=== PATIENT | male | born 1960 | race Caucasian/White ===

== ENCOUNTER 2017-11-27 07:20 | Emergency (ER) | payer SELFPAY ==
[~2017-11-27] VITALS: Ht 180.3 cm; Wt 110.2 kg
[~2017-11-27 07:20] MED LIST: LANTUS100 UNITS/ SC; LISINOPRIL10 MG PO; METFORMIN HCL500 M2; METFORMIN HCL500 MG PO; MOTRIN800 MG; PRINIVIL20 MG; ZOCOR40 MG
== END 2017-11-27 08:13 | disposition home or self-care (01) ==
LOC: ER 07:20
DX: R20.2 Paresthesia of skin (principal); E11.40 Type 2 diabetes mellitus with diabetic neuropathy, unspecified; L03.114 Cellulitis of left upper limb; L03.113 Cellulitis of right upper limb; I10 Essential (primary) hypertension
CPT/HCPCS: 99283

== ENCOUNTER → 2019-05-11 | Emergency (ER) | payer SELFPAY ==
[~2019-05-11] VITALS: Ht 180.3 cm; Wt 110.2 kg
[~2019-05-11] MED LIST changes: +CITRATE OF MAGNESIA 300ML BOTTLE PO ONE; +DIATRIZOATE MEGL/DIATRIZOA SOD 30 ML BTL PO ONE; +LACTULOSE SYRUP 20 GM/30 ML UDC PO ONE; +PEG (High)/E-LYTE SOLN 4,000 ML BTL PO ONE
--- OUTSIDE RECORDS SUMMARY | 2019-05-11 00:36 | XMS REPORT ---
Author [facility] Address Unknown Phone Unavailable Care Team Providers Care Exercise Equipment Specialist Name Role Phone Unavailable Unavailable Payers Payer Name Policy Type Policy Number Effective Date Expiration Date Problems This patient has no known problems. Allergies, Adverse Reactions, Alerts Allergy Name Allergy Type Status Severity Reaction(s) Onset Date Inactive Date Treating Clinician Comments azithromycin DA Active [place] 2014-06-05 00:00:00 Medications This patient has no known medications. Results Test Description Test Time Test Comments Text Results Atomic Results Result Comments URINALYSIS COMPLETE 2019-05-08 07:34:00 UA COLOR (test code=COLU) YELLOW YELLOW UA APPEARANCE (test code=APPU) CLEAR CLEAR UA GLUCOSE DIPSTICK (test code=DGLUU) NEGATIVE mg/dL NEGATIVE UA BILIRUBIN DIPSTICK (test code=BILU) NEGATIVE mg/dL NEGATIVE UA KETONE DIPSTICK (test code=KETU) NEGATIVE mg/dL NEGATIVE UA SPECIFIC GRAVITY (test code=SGU) 1.029 1.001-1.035 UA BLOOD DIPSTICK (test code=PIETER) Negative mg/dL NEGATIVE UA PH DIPSTICK (test code=BUNNY) 6.0 5.0-8.0 UA PROTEIN DIPSTICK (test code=PROU) 20 (Trace) mg/dL NEGATIVE UA UROBILINIOGEN DIPSTICK (test code=URO) >12.0 (4+) mg/dL NEGATIVE UA NITRITE DIPSTICK (test code=SANCHEZ) NEGATIVE NEGATIVE UA LEUKOCYTE ESTERASE W REFLEX (test code=LEUUR) NEGATIVE Doris/uL NEGATIVE UA WBC (test code=WBCU) 0-5 per HPF 0-5 UA RBC (test code=RBCU) 0-2 #/HPF 0-5 UA EPITHELIAL CELLS (test code=EPIU) FEW per HPF FEW UA BACTERIA (test code=BACU) NONE SEEN #/HPF NONE UA HYALINE CAST (test code=HYALU) 0-2 #/LPF 0-5 UA MUCUS (test code=MUCU) MANY #/LPF FEW Urine Source? Clean CatchURINALYSIS [id number] 07:15:00* Test Item Value Reference Range Comments UA COLOR (test code=COLU) YELLOW YELLOW UA APPEARANCE (test code=APPU) CLEAR CLEAR UA GLUCOSE DIPSTICK (test code=DGLUU) NEGATIVE mg/dL NEGATIVE UA BILIRUBIN DIPSTICK (test code=BILU) NEGATIVE mg/dL NEGATIVE UA KETONE DIPSTICK (test code=KETU) NEGATIVE mg/dL NEGATIVE UA SPECIFIC GRAVITY (test code=SGU) 1.029 1.001-1.035 UA BLOOD DIPSTICK (test code=PIETER) Negative mg/dL NEGATIVE UA PH DIPSTICK (test code=BUNNY) 6.0 5.0-8.0 UA PROTEIN DIPSTICK (test code=PROU) 20 (Trace) mg/dL NEGATIVE UA UROBILINIOGEN DIPSTICK (test code=URO) >12.0 (4+) mg/dL NEGATIVE UA NITRITE DIPSTICK (test code=SANCHEZ) NEGATIVE NEGATIVE UA LEUKOCYTE ESTERASE W REFLEX (test code=LEUUR) NEGATIVE Doris/uL NEGATIVE UA WBC (test code=WBCU) per HPF 0-5 UA RBC (test code=RBCU) per HPF 0-5 UA EPITHELIAL CELLS (test code=EPIU) per HPF Few UA BACTERIA (test code=BACU) per HPF NONE Urine Source? Clean CatchBASIC METABOLIC [id number] 06:32:00* Test Item Value Reference Range Comments SODIUM (test code=NA) 141 mmol/L 136-145 POTASSIUM (test code=K) 4.2 mmol/L 3.5-5.1 CHLORIDE (test code=CL) 107.0 mmol/L 98-107 CARBON DIOXIDE (test code=CO2) 27.0 mmol/L 21-32 ANION GAP (test code=GAP) 11.2 10-20 GLUCOSE (test code=GLU) 178 mg/dL 74-106 BLOOD UREA NITROGEN (test code=BUN) 12 mg/dL 7-18 GLOMERULAR FILTRATION RATE (test code=GFR) > 60 mL/min >=60 Estimated GFR by using Modified MDRD formula.Chronic kidney disease is defined as either kidney damageor GFR <60 mL/min/1.73 m2 for >3 months. CREATININE (test code=CREAT) 0.80 mg/dL 0.7-1.3 BUN/CREATININE RATIO (test code=BUN/CREA) 14.6 10-20 CALCIUM (test code=CA) 9.3 mg/dL 8.5-10.1 HEPATIC FUNCTION [id number] 06:32:00* Test Item Value Reference Range Comments TOTAL PROTEIN (test code=PROT) 6.8 gram/dL 6.4-8.2 ALBUMIN (test code=ALB) 4.3 g/dL 3.4-5.0 GLOBULIN (test code=GLOB) 2.5 gram/dL 2.7-4.2 ALBUMIN/GLOBULIN RATIO (test code=A/G) 1.7 0.75-1.50 BILIRUBIN TOTAL (test code=BILT) 1.00 mg/dL 0.0-1.0 BILIRUBIN DIRECT (test code=BILD) 0.28 mg/dL 0.0-0.20 SGOT/AST (test code=AST) 10 IUnit/L 15-37 SGPT/ALT (test code=ALT) 15 IUnit/L 12-78 ALKALINE PHOSPHATASE TOTAL (test code=ALKP) 71 IUnit/L 45-117 Note change in reference range due to change in reagent. CBC W/O [id number] 06:26:00* Test Item Value Reference Range Comments WHITE BLOOD CELL (test code=WBC) 4.3 K/mm3 4.5-12.5 RED BLOOD CELL (test code=RBC) 2.42 mill/mm3 4.0-5.8 HEMOGLOBIN (test code=HGB) 10.6 gram/dL 13.0-17.5 HEMATOCRIT (test code=HCT) 29.8 % 42.0-52.0 MEAN CELL VOLUME (test code=MCV) 123.1 fL 80-98 MEAN CELL HGB (test code=MCH) 43.8 picogram 27.0-33.0 MEAN CELL HGB CONCETRATION (test code=MCHC) 35.6 gram/dL 33.0-36.0 RED CELL DISTRIBUTION WIDTH (test code=RDW) 11.9 % 11.6-16.2 PLATELET COUNT (test code=PLT) 235 K/mm3 150-450 MEAN PLATELET VOLUME (test code=MPV) 10.2 fL 6.7-11.0 [id number] 06:26:00* Test Item Value Reference Range Comments LIPASE (test code=LIP) 56 U/L 73.0-393.0 BASIC METABOLIC [id number] 06:22:00* Test Item Value Reference Range Comments SODIUM (test code=NA) 141 mmol/L 136-145 POTASSIUM (test code=K) 4.2 mmol/L 3.5-5.1 CHLORIDE (test code=CL) 107.0 mmol/L 98-107 CARBON DIOXIDE (test code=CO2) mmol/L 21-32 ANION GAP (test code=GAP) 10-20 GLUCOSE (test code=GLU) mg/dL 74-106 BLOOD UREA NITROGEN (test code=BUN) mg/dL 7-18 GLOMERULAR FILTRATION RATE (test code=GFR) mL/min >=60 CREATININE (test code=CREAT) mg/dL 0.7-1.3 BUN/CREATININE RATIO (test code=BUN/CREA) 10-20 CALCIUM (test code=CA) mg/dL 8.5-10.1 HEPATIC FUNCTION [id number] 06:22:00* Test Item Value Reference Range Comments TOTAL PROTEIN (test code=PROT) gram/dL 6.4-8.2 ALBUMIN (test code=ALB) g/dL 3.4-5.0 GLOBULIN (test code=GLOB) gram/dL 2.7-4.2 ALBUMIN/GLOBULIN RATIO (test code=A/G) 0.75-1.50 BILIRUBIN TOTAL (test code=BILT) mg/dL 0.0-1.0 BILIRUBIN DIRECT (test code=BILD) mg/dL 0.0-0.20 SGOT/AST (test code=AST) IUnit/L 15-37 SGPT/ALT (test code=ALT) IUnit/L 12-78 ALKALINE PHOSPHATASE TOTAL (test code=ALKP) IUnit/L 45-117 - XR ABDOMEN AP 1 [id number] 05:51:00 FAX: Celestina Givens Amigo: B St: REG Name: PEDRITO POTTS [facility] : [birth year] Age/S: 58/M [address] [facility] Unit #: [id number] Loc: [place] [address] Phys: Manuel Givensairam Jean ie 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 Comparison exam: CT examination abdomen and pelvis of 05/05/19 Bowel gas pattern is nonobstructed and nonspecific. There is no signi ficant transition No free air seen. Small amount of enteric contrast mater ial remains in the colon predominantly. No clear progression findings. IMPRESSION: Nonspecific and nonacute x-ray exam at 0593 Reported and signed by: Michelle Ybarra M.D. CC: Celestina Nunez NP Technologist: RT HELADIO Trnscrd Date/Time/By: 05/08/2019 (055 1) : By: [email or web address] Orig Print D/T: S: 05/08/2019 (0554) PAGE 1 Signed Report THYROID STIMULATING [id number] 17:12:00* Test Item Value Reference Range Comments THYROID STIMULATING HORMONE (test code=TSH) 1.950 uIU/mL 0.36-3.74 TSH REFERENCE RANGES: EUTHYROID: 0.35 - 4.3 mIU/mL HYPO : > 5.5 mIU/mL HYPER : < 0.35 mIU/mL TSH REFLEX TO [id number] 17:12:00* Test Item Value Reference Range Comments TSH REFLEX TO FT4 (test code=TSHREFLEX) 2.0 0.4-5.5 - CT ABD PELVIS W WO [id number] 02:41:00 Name: PEDRITO JALLOH [facility] : 1960 Age/S: 58 / M [address] [facility] Unit #: [id number] Loc: [place] [address] Phys: Estefani Bear MD Acct: [id number] Dis Date: Status: REG ER PHONE #: [phone] Exam Date: 05/05/2019228 FAX #: [phone] Reason: Constipation and epigastric abdominal pain EXAMS: CPT CODE: [id number] CT ABD PELVIS W WO CONT 00634 AFTER HOURS SERVICE ON: 05/05/2019 2:[address] Scan of the Abdomen and Pelvis With and Without Contrast Location Code M12 History: Constipation and epigastric abdominal pain Technique: Axial and reconstructed coronal scans were performed on a helical scanner pre and post IV contrast. Delayed scans were also obtained. One or more of the following dose reduction techniques were used: Automated exposure control, adjustment of the mA and/or kV according to patient size, and/or utilization of iterative reconstruction technique. Findings: There is an irregular soft tissue density in the gallbladder lumen oc cupying most of the gallbladder. There is possible gallbladder wall thick ening. There are no peripancreatic inflammatory changes. No abnormal abiel er or splenic enhancement seen. Adrenal glands are symmetric. Mul tiple small cystic lesions are seen in the kidneys, the largest in the rig ht upper pole measuring 1.7 cm. Some are too small to adequately characte rize. There is no hydronephrosis or pyelonephritis. Bladder is unremarka ble. Diverticular changes noted in the sigmoid colon without evide nce of diverticulitis. The appendix and small bowel are within normal limits. Oral contrast is present in the small bowel. Moderate amount of stool is present in the colon. IMPRESSION: Moderate amount of retained colonic stool. No bowel obstruction. Diverticulosis coli without diverticulitis. Irregular soft tissue density occupying most of the gallbladder lumen. Further evalua tion is recommended with ultrasound to evaluate for gallbladder sludge v ersus gallbladder mass. Possible gallbladder wall thickening. PAGE 1 Signed Report (CONTINUED) Name: PEDRITO POTTS [facility] : [birth year] Age/S: 58 / M [address] [facility] Unit #: [id number] Loc: [place] [address] Phys: Estefani Bear MD Acct: [id number] Dis Date: Status: REG ER PHONE #: [phone] Exam Date: 05/05/2019228 FAX #: [phone] Reason: Constipation and epigastric abdominal pain EXAMS: CPT CODE: [id number] CT ABD [place]ELVIS W [place] CONT [address]151 <Continued> at 0241 Reported and signed by: Talha Holden M.D. CC: Estefani Bear MD Technologist:RT Uriel(R)(CT) CTDI: DLP: Trnscb Date/Time: 05/05/2019 (240) [email or web address] Orig Print D/T: S: 05/05/2019 (024) PAGE 2 Signed Report DRUGS OF ABUSE SCREEN [id number] 02:02:00* Test Item Value Reference Range Comments UA PH DIPSTICK (test code=BUNNY) 5.5 5.0-8.0 URN COCAINE (test code=COCAURN) NEGATIVE <300 ng/mL URN CANNABINOIDS (test code=CANNABURN) NEGATIVE <50 ng/mL URN AMPHETAMINE (test code=AMPHETURN) NEGATIVE <1000 ng/mL URN BARBITURATE (test code=BARBITURN) NEGATIVE <200 ng/mL URN BENZODIAZEPINE (test code=BENZOURN) NEGATIVE <200 ng/mL URN OPIATES (test code=OPIATURN) NEGATIVE <300 ng/mL URN PHENCYCLIDINE (PCP) (test code=PHENCURN) NEGATIVE <25 ng/mL URN METHADONE (test code=METHAURN) NEGATIVE <300 ng/mL URINALYSIS [id number] 01:58:00* Test Item Value Reference Range Comments UA COLOR (test code=COLU) YELLOW YELLOW UA APPEARANCE (test code=APPU) CLEAR CLEAR UA GLUCOSE DIPSTICK (test code=DGLUU) NEGATIVE mg/dL NEGATIVE UA BILIRUBIN DIPSTICK (test code=BILU) NEGATIVE mg/dL NEGATIVE UA KETONE DIPSTICK (test code=KETU) NEGATIVE mg/dL NEGATIVE UA SPECIFIC GRAVITY (test code=SGU) 1.021 1.001-1.035 UA BLOOD DIPSTICK (test code=PIETER) Negative mg/dL NEGATIVE UA PH DIPSTICK (test code=BUNNY) 5.5 5.0-8.0 UA PROTEIN DIPSTICK (test code=PROU) NEGATIVE mg/dL NEGATIVE UA UROBILINIOGEN DIPSTICK (test code=URO) >12.0 (4+) mg/dL NEGATIVE UA NITRITE DIPSTICK (test code=SANCHEZ) NEGATIVE NEGATIVE UA LEUKOCYTE ESTERASE W REFLEX (test code=LEUUR) NEGATIVE Doris/uL NEGATIVE UA WBC (test code=WBCU) 0-5 per HPF 0-5 UA RBC (test code=RBCU) 0-2 #/HPF 0-5 UA EPITHELIAL CELLS (test code=EPIU) RARE per HPF FEW UA BACTERIA (test code=BACU) TRACE #/HPF NONE UA MUCUS (test code=MUCU) FEW #/LPF FEW Urine Source? Clean CatchDRUGS OF ABUSE SCREEN [id number] 01:58:00* Test Item Value Reference Range Comments UA PH DIPSTICK (test code=BUNNY) 5.5 5.0-8.0 URN COCAINE (test code=COCAURN) <300 ng/mL URN CANNABINOIDS (test code=CANNABURN) <50 ng/mL URN AMPHETAMINE (test code=AMPHETURN) <1000 ng/mL URN BARBITURATE (test code=BARBITURN) <200 ng/mL URN BENZODIAZEPINE (test code=BENZOURN) <200 ng/mL URN OPIATES (test code=OPIATURN) <300 ng/mL URN PHENCYCLIDINE (PCP) (test code=PHENCURN) <25 ng/mL URN METHADONE (test code=METHAURN) <300 ng/mL URINALYSIS [id number] 01:41:00* Test Item Value Reference Range Comments UA COLOR (test code=COLU) YELLOW YELLOW UA APPEARANCE (test code=APPU) CLEAR CLEAR UA GLUCOSE DIPSTICK (test code=DGLUU) NEGATIVE mg/dL NEGATIVE UA BILIRUBIN DIPSTICK (test code=BILU) NEGATIVE mg/dL NEGATIVE UA KETONE DIPSTICK (test code=KETU) NEGATIVE mg/dL NEGATIVE UA SPECIFIC GRAVITY (test code=SGU) 1.021 1.001-1.035 UA BLOOD DIPSTICK (test code=PIETER) Negative mg/dL NEGATIVE UA PH DIPSTICK (test code=BUNNY) 5.5 5.0-8.0 UA PROTEIN DIPSTICK (test code=PROU) NEGATIVE mg/dL NEGATIVE UA UROBILINIOGEN DIPSTICK (test code=URO) >12.0 (4+) mg/dL NEGATIVE UA NITRITE DIPSTICK (test code=SANCHEZ) NEGATIVE NEGATIVE UA LEUKOCYTE ESTERASE W REFLEX (test code=LEUUR) NEGATIVE Doris/uL NEGATIVE UA WBC (test code=WBCU) per HPF 0-5 UA RBC (test code=RBCU) per HPF 0-5 UA EPITHELIAL CELLS (test code=EPIU) per HPF Few UA BACTERIA (test code=BACU) per HPF NONE Urine Source? Clean CatchBASIC METABOLIC [id number] 01:38:00* Test Item Value Reference Range Comments SODIUM (test code=NA) 141 mmol/L 136-145 POTASSIUM (test code=K) 4.0 mmol/L 3.5-5.1 CHLORIDE (test code=CL) 107.0 mmol/L 98-107 CARBON DIOXIDE (test code=CO2) 29.0 mmol/L 21-32 ANION GAP (test code=GAP) 9.0 10-20 GLUCOSE (test code=GLU) 175 mg/dL 74-106 BLOOD UREA NITROGEN (test code=BUN) 13 mg/dL 7-18 GLOMERULAR FILTRATION RATE (test code=GFR) > 60 mL/min >=60 Estimated GFR by using Modified MDRD formula.Chronic kidney disease is defined as either kidney damageor GFR <60 mL/min/1.73 m2 for >3 months. CREATININE (test code=CREAT) 0.80 mg/dL 0.7-1.3 BUN/CREATININE RATIO (test code=BUN/CREA) 16.0 10-20 CALCIUM (test code=CA) 9.1 mg/dL 8.5-10.1 HEPATIC FUNCTION [id number] 01:38:00* Test Item Value Reference Range Comments TOTAL PROTEIN (test code=PROT) 6.5 gram/dL 6.4-8.2 ALBUMIN (test code=ALB) 3.8 g/dL 3.4-5.0 GLOBULIN (test code=GLOB) 2.7 gram/dL 2.7-4.2 ALBUMIN/GLOBULIN RATIO (test code=A/G) 1.4 0.75-1.50 BILIRUBIN TOTAL (test code=BILT) 1.00 mg/dL 0.0-1.0 BILIRUBIN DIRECT (test code=BILD) 0.31 mg/dL 0.0-0.20 SGOT/AST (test code=AST) 7 IUnit/L 15-37 SGPT/ALT (test code=ALT) 15 IUnit/L 12-78 ALKALINE PHOSPHATASE TOTAL (test code=ALKP) 64 IUnit/L 45-117 Note change in reference range due to change in reagent. [id number] 01:38:00* Test Item Value Reference Range Comments LIPASE (test code=LIP) 51 U/L 73.0-393.0 [id number] 01:38:00* Test Item Value Reference Range Comments TROPONIN-I (test code=TROPI) <0.015 ng/mL 0-0.045 BASIC METABOLIC [id number] 01:13:00* Test Item Value Reference Range Comments SODIUM (test code=NA) 141 mmol/L 136-145 POTASSIUM (test code=K) 4.0 mmol/L 3.5-5.1 CHLORIDE (test code=CL) 107.0 mmol/L 98-107 CARBON DIOXIDE (test code=CO2) mmol/L 21-32 ANION GAP (test code=GAP) 10-20 GLUCOSE (test code=GLU) mg/dL 74-106 BLOOD UREA NITROGEN (test code=BUN) mg/dL 7-18 GLOMERULAR FILTRATION RATE (test code=GFR) mL/min >=60 CREATININE (test code=CREAT) mg/dL 0.7-1.3 BUN/CREATININE RATIO (test code=BUN/CREA) 10-20 CALCIUM (test code=CA) mg/dL 8.5-10.1 HEPATIC FUNCTION [id number] 01:13:00* Test Item Value Reference Range Comments TOTAL PROTEIN (test code=PROT) gram/dL 6.4-8.2 ALBUMIN (test code=ALB) g/dL 3.4-5.0 GLOBULIN (test code=GLOB) gram/dL 2.7-4.2 ALBUMIN/GLOBULIN RATIO (test code=A/G) 0.75-1.50 BILIRUBIN TOTAL (test code=BILT) mg/dL 0.0-1.0 BILIRUBIN DIRECT (test code=BILD) mg/dL 0.0-0.20 SGOT/AST (test code=AST) IUnit/L 15-37 SGPT/ALT (test code=ALT) IUnit/L 12-78 ALKALINE PHOSPHATASE TOTAL (test code=ALKP) IUnit/L 45-117 [id number] 01:13:00* Test Item Value Reference Range Comments LIPASE (test code=LIP) U/L 73.0-393.0 [id number] 01:13:00* Test Item Value Reference Range Comments TROPONIN-I (test code=TROPI) ng/mL 0-0.045 CBC W/O [id number] 00:56:00* Test Item Value Reference Range Comments WHITE BLOOD CELL (test code=WBC) 4.9 K/mm3 4.5-12.5 RED BLOOD CELL (test code=RBC) 2.19 mill/mm3 4.0-5.8 HEMOGLOBIN (test code=HGB) 9.7 gram/dL 13.0-17.5 HEMATOCRIT (test code=HCT) 27.2 % 42.0-52.0 MEAN CELL VOLUME (test code=MCV) 124.2 fL 80-98 MEAN CELL HGB (test code=MCH) 44.3 picogram 27.0-33.0 MEAN CELL HGB CONCETRATION (test code=MCHC) 35.7 gram/dL 33.0-36.0 RED CELL DISTRIBUTION WIDTH (test code=RDW) 12.3 % 11.6-16.2 PLATELET COUNT (test code=PLT) 183 K/mm3 150-450 MEAN PLATELET VOLUME (test code=MPV) 9.2 fL 6.7-11.0 - XR ABDOMEN AP 1 [id number] 22:32:00 FAX: Estefani Bear MD Amigo: St: REG Name: PEDRITO POTTS [facility] : [birth year] Age/S: 58/M [address] [facility] Unit #: [id number] Loc: [place] [address] Phys: Estefani Bear MD Acct: [id number] Dis Date: Status: REG ER PHONE #: [phone] Exam Date: 05/04/20192222 FAX #: [phone] Reason: ABDOMINAL PAIN EXAMS: CPT CODE: [id number] XR ABDOMEN AP 1 V 91644 HISTORY: ABDOMINAL PAIN TECHNIQUE: AP abdomen x-ray COMPARISON: None FINDINGS: Nonobstructive bowel gas pattern. Moderate stool burden. No intra-abdominal mass effect. No abnormal calcificati ons are observed. Mild degenerative changes are present in the sp ine. Visualized thorax is within normal limits. IMPRESSION: Moderate colonic stool burden suggests constipat ion. Location: [facility] at 2232 Reported and signed by: Nader García MD CC: Estefani Bear MD Technologist: RT GERONIMO(R); Jo-Ann Parra(R) Trnscrd Date/Time/By: 05/04/2019 (2232) : By: [email or web address] Orig Print D/T : S: 05/04/2019 (7713) PAGE 1 Sig enrrique Report - XR CHEST 1 [id number] 22:31:00 FAX: Estefani Bear MD Amigo: St: REG Name: PEDRITO POTTS [facility] : [birth year] Age/S: 58/M [address] [facility]: [id number] Loc: [place] [address] Phys: Estefani Bear MD Acct: [id number] Dis Date: Status: REG ER PHONE #: [phone] Exam Date: 05/04/20192216 FAX #: [phone] Reason: ABDOMINAL PAIN EXAMS: CPT CODE: [id number] XR CHEST 1 V 31809 REASON FOR EXAM: ABDOMINAL PAIN Exam Order Date: 05/04/2019 9:25 PM Ordering M .D.: Estefani Bear MD PROCEDURE: - XR CHEST 1 V COMPARISON: None FINDINGS: The lungs are clear. There is no pleural effusion or pneumothorax. Pulmonary vascularity is within elba l limits. Cardiomediastinal silhouette is normal in size for techn ique. The mediastinal contours are within normal limits. Deg enerative changes are present in the left acromioclavicular joint. The visualized upper abdomen is within normal limits. I MPRESSION: No acute cardiopulmonary process. Location: [facility] at 2231 Reported and signed by: Angel García MD CC: Estefani Alcala MD Technologist: ALMA ROSA MARTINEZ RT(R); Jo-Ann Parra(R) Trnscrd Date/Time/By: 05/04/2019 (223 1) : By: [email or web address] Orig Print D/T: S: 05/04/2019 (8182) PAGE 1 Signed Report
--- NOTE | 2019-05-11 02:41 | Diagnostic Imaging Report ---
EXAM: CT Abdomen and Pelvis WITHOUT contrast INDICATION: Constipation COMPARISON: None. TECHNIQUE: Abdomen and pelvis were scanned utilizing a multidetector helical scanner from the lung base to the pubic symphysis without administration of IV contrast. Absence of intravenous contrast decreases sensitivity for detection of focal lesions and vascular pathology. Coronal and sagittal reformations were obtained. Routine protocol was performed. IV CONTRAST: None ORAL CONTRAST: None COMPLICATIONS: None RADIATION DOSE: Total DLP: 633 mGy*cm Estimated effective dose: (DLP x 0.015 x size factor) mSv CTDIvol has been reviewed. It is below the limits set by the Radiation Protocol Committee (RPC). Dose modulation, iterative reconstruction, and/or weight based adjustment of the mA/kV was utilized to reduce the radiation dose to as low as reasonably achievable. FINDINGS: LINES and TUBES: None. LOWER THORAX: Right coronary calcification. HEPATOBILIARY: No focal hepatic lesions. No biliary ductal dilation. GALLBLADDER: 4.7 cm calcified gallstone. No wall thickening. SPLEEN: No splenomegaly. PANCREAS: No focal masses or ductal dilatation. ADRENALS: No adrenal nodules KIDNEYS/URETERS: No hydronephrosis. No cystic or solid mass lesions. No stones. A 1.9 cm cyst in the right kidney. No solid mass lesion. Trace bilateral perinephric fat stranding can be seen with senescence or renal insufficiency.. GI TRACT: No abnormal distention, wall thickening, or evidence of bowel obstruction. There are numerous diverticula within the colon without evidence of diverticulitis. Appendix is normal. Colonic stool burden is within normal limits. PELVIC ORGANS/BLADDER: Costophrenic prostate nodules. Unremarkable. LYMPH NODES: No lymphadenopathy. VESSELS: There is mild atherosclerotic disease in the aorta and major arterial branches. PERITONEUM / RETROPERITONEUM: No free air or fluid. BONES: There are degenerative changes in the lumbar spine. SOFT TISSUES: Unremarkable. IMPRESSION: 1. A 4.7 cm calcified gallstone without evidence of acute obstructive cholecystitis. Chronic cholecystitis possible. 2. Colonic diverticulosis without diverticulitis. 3. Right coronary artery calcific atherosclerosis. Signed by: Oli Grimes DO on 05/11/2019 2:37 AM
--- NOTE | 2019-05-11 05:19 | NUR ---
Pt ambulatory making multiple trips to the bathroom during ER visit. States he is still unable to have a bowel movement but is passing gas. Pt is anxious and hostile stating that he thinks he has an obstruction or that he has a large stool volume that cannot pass. Dr. Fernandez at bedside discussing CT results and attempting to inform pt that he does not have an obstruction and that he does not, in fact, have that large of a retained stool volume. Pt is still insistent that he needs certain procedures and that he is not going to leave ER without having an endscopic scope and/or a colonoscopy. Pt states that he has been to multiple ERs multiple times.
[2019-05-11 06:43] VITALS: BP 145/70
== END | disposition home or self-care (01) ==
LOC: ER 00:33
DX: R10.13 Epigastric pain (principal); K81.1 Chronic cholecystitis
CPT/HCPCS: 74176; 99284

== ENCOUNTER 2019-07-24 10:00 | Emergency (ER) | payer SELFPAY ==
[~2019-07-24] VITALS: Ht 180.3 cm; Wt 110.2 kg
[~2019-07-24 10:00] MED LIST changes: -CITRATE OF MAGNESIA 300ML BOTTLE PO ONE; -DIATRIZOATE MEGL/DIATRIZOA SOD 30 ML BTL PO ONE; -LACTULOSE SYRUP 20 GM/30 ML UDC PO ONE; -PEG (High)/E-LYTE SOLN 4,000 ML BTL PO ONE
[2019-07-24] MEDS ORDERED: SODIUM CHLORIDE 0.9% 1000ML 1,000 ML IV STA (10:08)
[2019-07-24] MEDS ORDERED: KETOROLAC TROMETHAMINE 30 MG/ML VIAL IV STA (10:08)
[2019-07-24] MEDS ORDERED: ONDANSETRON HCL INJ 2MG/ML 2ML 2 MG/ML VIAL IV STA (10:08)
[2019-07-24] MEDS ORDERED: DIATRIZOATE MEGL/DIATRIZOA SOD 30 ML BTL PO ONE (10:22)
[2019-07-24 10:54] LABS: BASOPHILS % 0.2 % (0.0-1.0); EOSINOPHILS # (AUTO) 0.1 (0.0-0.4); EOSINOPHILS % 1.3 % (0.0-6.0); HEMATOCRIT 29.4 % (38.2-49.6); HEMOGLOBIN 10.9 g/dL (14.0-18.0); LYMPHOCYTES # (AUTO) 1.3 (1.0-3.2); LYMPHOCYTES % 28.4 % (18.0-39.1); MEAN CORPUSCULAR HEMOGLOBIN 42.7 pg (28-32); MEAN CORPUSCULAR HGB CONC 37.1 g/dL (31-35); MEAN CORPUSCULAR VOLUME 115.3 fL (81-99); MONOCYTES # (AUTO) 0.4 (0.2-0.8); MONOCYTES % 8.7 % (4.4-11.3); NEUTROPHILS # (AUTO) 2.9 (2.1-6.9); NEUTROPHILS % 61.2 % (38.7-80.0); PLATELET COUNT 183 x10e3/uL (140-360); RED BLOOD COUNT 2.55 x10e6/uL (4.3-5.7); RED CELL DISTRIBUTION WIDTH 11.8 % (11.7-14.4)
[2019-07-24 11:22] LABS: ALANINE AMINOTRANSFERASE 42 IU/L (0-55); ALBUMIN 4.4 g/dL (3.5-5.0); ALBUMIN/GLOBULIN RATIO 1.6 (0.8-2.0); ALKALINE PHOSPHATASE 93 IU/L (40-150); ANION GAP 15.8 mmol/L (8-16); BLOOD UREA NITROGEN 18 mg/dL (7-26); BUN/CREATININE RATIO 16 (6-25); CALCIUM 9.7 mg/dL (8.4-10.2); CARBON DIOXIDE 23 mmol/L (22-29); CHLORIDE 104 mmol/L (98-107); CREATINE KINASE 17 IU/L (30-200); CREATININE, SERUM 1.16 mg/dL (0.72-1.25); EST GLOMERULAR FILTRATION RATE > 60 ML/MIN (60-); GLUCOSE 133 mg/dL (74-118); LIPASE 6 U/L (8-78); MAGNESIUM 1.7 MG/DL (1.3-2.1); POTASSIUM 3.8 mmol/L (3.5-5.1); SODIUM 139 mmol/L (136-145)
--- NOTE | 2019-07-24 11:25 | Diagnostic Imaging Report ---
Chest, 1 view, 07/24/2019. History: Upper abdominal pain. Comparison: None available. Findings: The cardiomediastinal silhouette and pulmonary vasculature are within normal limits for a portable exam. There is no focal consolidation or pleural effusion. There is no evidence of free air under the hemidiaphragms. There are no acute osseous or soft tissue abnormalities. Impression: No acute cardiopulmonary abnormality. Signed by: Yonas Joy on 07/24/2019 11:22 AM
--- NOTE | 2019-07-24 11:32 | Diagnostic Imaging Report ---
Right upper quadrant abdominal ultrasound, 07/24/2019. History: Upper abdominal pain. Comparison: CT 05/11/2019. Discussion: Transverse and longitudinal images of the right upper quadrant of the abdomen were obtained demonstrating a liver of normal size but mildly increased echogenicity measuring 14.2 cm in length. There is no evidence of a focal hepatic mass. The portal vein is patent with hepatopetal flow and is within normal limits measuring 9 mm in diameter. The biliary tree is within normal limits with the common bile duct measuring for mm in diameter. The gallbladder is contains sludge and a 3.7 cm stone, without evidence of wall thickening or pericholecystic fluid. The sonographic Sanchez's sign was positive. The right kidney is normal in size and echogenicity without evidence of hydronephrosis, stones, or mass and measures 11.2 cm in length. 2 oval anechoic structures are present, measuring 1.2 and 2.1 cm in maximal diameter. The pancreatic <body and tail> are visualized and are normal in appearance. The abdominal aorta is within normal limits. There is no evidence of free fluid. IMPRESSION: 1. Mild fatty infiltration of the liver. 2. Cholelithiasis and gallbladder sludge with positive sonographic Sanchez's sign suggestive of cholecystitis. 3. Simple benign right renal cysts.. Signed by: Yonas Joy on 07/24/2019 11:30 AM
[2019-07-24 12:00] LABS: INR 1.11; PROTHROMBIN TIME 14.6 seconds (11.9-14.5)
[2019-07-24 12:01] LABS: PARTIAL THROMBOPLASTIN TIME 30.9 seconds (23.8-35.5)
--- NOTE | 2019-07-24 12:32 | Diagnostic Imaging Report ---
CT of the abdomen and pelvis, with contrast, 07/24/2019. History: Diffuse abdominal pain, constipation. Comparison: CT abdomen 05/11/2019. Right upper quadrant ultrasound from earlier today. Technique: Multidetector CT scanning of the abdomen and pelvis was performed from the level of the lung bases to the inferior pubic rami after intravenous administration of contrast. The patient was unable to tolerate oral contrast. Coronal and sagittal multiplanar reformations were obtained. RADIATION DOSE: Total DLP: 488 mGy*cm Dose modulation, iterative reconstruction, and/or weight based adjustment of the mA/kV was utilized to reduce the radiation dose to as low as reasonably achievable. Discussion: LUNG BASES: No visualized abnormalities. ABDOMEN: Gallstone and sludge are noted. There is no gallbladder wall thickening. Bilateral small benign renal cysts are noted. The liver, biliary tree, spleen, pancreas, adrenal glands, and left kidney are normal. The hepatic vein, portal vein, and splenic vein are patent. The abdominal aorta is within normal limits for size. Evaluation of bowel is limited due to absence of oral contrast. There is prominence of the gastric antral wall, but the stomach is nondistended. The small bowel is unremarkable. There is no bowel dilatation. The appendix is not clearly visualized but there is no evidence of inflammation in the right lower quadrant. Fluid is noted within the proximal colon but there is no significant retained stool. Scattered diverticuli are present within the distal descending and sigmoid colon without evidence of adjacent inflammation There is no evidence of adenopathy or free fluid. PELVIS: The bladder, prostate, and seminal vesicles are unremarkable. There is no evidence of free fluid or adenopathy. Small fat-containing inguinal hernias are present bilaterally. BONES AND SOFT TISSUES: Mild degenerative changes are present throughout the lumbar spine without evidence of lytic or sclerotic lesion. IMPRESSION: 1. Gallbladder sludge with cholelithiasis again noted. 2. Small bilateral benign renal cysts. 3. Colonic diverticulosis without evidence of diverticulitis. No evidence of bowel obstruction or significant retained stool. 4. Gastric antral wall prominence, which may be secondary to underdistention. If the patient has gastric symptoms, consider endoscopy. Signed by: Yonas Joy on 07/24/2019 12:30 PM
[2019-07-24] MEDS ORDERED: IOPAMIDOL 370 MG/ML 200 ML INFUS..BTL INJ ONE (14:41)
[2019-07-24] MEDS ORDERED: SODIUM CHLORIDE 0.9% 50ML 50 ML ONE (14:41)
== END 2019-07-24 13:42 | disposition home or self-care (01) ==
LOC: ER 10:00
DX: R10.84 Generalized abdominal pain (principal); K80.20 Calculus of gallbladder without cholecystitis without obstruction
CPT/HCPCS: 36415; 71045; 74177; 76705; 80053; 82550; 82553; 83690; 83735; 84484; 85025; 85610; 85730; 99284; J1885; J2405; J7030; Q9967

== ENCOUNTER 2019-07-25 15:20 | Emergency (ER) | payer SELFPAY ==
[~2019-07-25] VITALS: Ht 180.3 cm; Wt 110.2 kg
== END 2019-07-25 16:00 | disposition home or self-care (01) ==
LOC: ER 15:20
DX: R14.0 Abdominal distension (gaseous) (principal); R15.0 Incomplete defecation; E11.40 Type 2 diabetes mellitus with diabetic neuropathy, unspecified; Z79.4 Long term (current) use of insulin; I10 Essential (primary) hypertension
CPT/HCPCS: 99282

== ENCOUNTER 2022-10-26 15:29 | Emergency (ER) | payer BC ==
[~2022-10-26] VITALS: Ht 180.3 cm; Wt 110.2 kg
[2022-10-26 15:34] VITALS: O2SAT 100
[2022-10-26] MEDS ORDERED: IBUPROFEN 600 MG TAB PO STA (15:37)
[2022-10-26] MEDS ORDERED: ALBUTEROL SULFATE HFA 8GM INHALATION AEROSOL INH ONE (15:45)
[2022-10-26] MEDS ORDERED: BENZONATATE 100 MG CAP PO ONE (15:45)
[2022-10-26] MEDS ORDERED: DOXYCYCLINE HY100 MG PO (16:34)
[2022-10-26] MEDS ORDERED: BENZONATATE100 MG PO (16:34)
== END 2022-10-26 17:51 | disposition home or self-care (01) ==
LOC: ER 15:40
DX: R05.9 Cough, unspecified (principal); J06.9 Acute upper respiratory infection, unspecified; B34.9 Viral infection, unspecified; R09.89 Other specified symptoms and signs involving the circulatory and respiratory systems; I10 Essential (primary) hypertension; E11.9 Type 2 diabetes mellitus without complications; E11.40 Type 2 diabetes mellitus with diabetic neuropathy, unspecified
CPT/HCPCS: 71046; 99284

== ENCOUNTER 2023-10-09 09:56 | Emergency (ER) | payer BC ==
[~2023-10-09] VITALS: Ht 180.3 cm; Wt 94.8 kg
[~2023-10-09 09:56] MED LIST changes: +BENZONATATE100 MG PO; +DOXYCYCLINE HY100 MG PO
[2023-10-09 10:00] VITALS: O2SAT 100
== END 2023-10-09 12:48 | disposition home or self-care (01) ==
LOC: ER 10:18
DX: K59.00 Constipation, unspecified (principal); R14.0 Abdominal distension (gaseous); R14.3 Flatulence; E11.40 Type 2 diabetes mellitus with diabetic neuropathy, unspecified; I10 Essential (primary) hypertension
CPT/HCPCS: 74019; 99283

== ENCOUNTER 2023-10-09 18:42 | Emergency (ER) | payer BC ==
[~2023-10-09] VITALS: Ht 180.3 cm; Wt 94.8 kg
[~2023-10-09 18:42] MED LIST changes: +SODIUM CHLORIDE 0.9% 1000 ML BAG ONE
[2023-10-09] MEDS ORDERED: SODIUM CHLORIDE 0.9% 1000ML 1,000 ML ONE (19:16)
[2023-10-09] MEDS: SODIUM CHLORIDE 0.9% 1000ML 1,000 ML IV STA (19:24)
[2023-10-09 19:37] LABS: BASOPHILS % 0.5 % (0.0-1.0); EOSINOPHILS # (AUTO) 0.2 (0.0-0.4); HEMATOCRIT 40.3 % (38.2-49.6); LYMPHOCYTES # (AUTO) 1.8 (1.0-3.2); MEAN CORPUSCULAR HEMOGLOBIN 32.3 pg (28-32); MEAN CORPUSCULAR HGB CONC 34.7 g/dL (31-35); MEAN CORPUSCULAR VOLUME 92.9 fL (81-99); MONOCYTES # (AUTO) 0.7 (0.2-0.8); MONOCYTES % 11.6 % (4.4-11.3); NEUTROPHILS # (AUTO) 3.4 (2.1-6.9); NEUTROPHILS % 55.6 % (38.7-80.0); PLATELET COUNT 200 x10e3/uL (140-360); RED BLOOD COUNT 4.34 x10e6/uL (4.3-5.7); RED CELL DISTRIBUTION WIDTH 14.7 % (11.7-14.4); WHITE BLOOD COUNT 6.03 x10e3/uL (4.8-10.8)
[2023-10-09 19:57] LABS: ALANINE AMINOTRANSFERASE 19 IU/L (0-55); ALBUMIN 4.2 g/dL (3.5-5.0); ALBUMIN/GLOBULIN RATIO 1.4 (0.8-2.0); ALKALINE PHOSPHATASE 59 IU/L (40-150); ANION GAP 13.4 mmol/L (8-16); BILIRUBIN,TOTAL 0.5 mg/dL (0.2-1.2); BLOOD UREA NITROGEN 14 mg/dL (7-26); BUN/CREATININE RATIO 14 (6-25); CARBON DIOXIDE 21 mmol/L (22-29); CHLORIDE 110 mmol/L (98-107); CREATINE KINASE 165 IU/L (30-200); CREATININE, SERUM 1.01 mg/dL (0.72-1.25); EST GLOMERULAR FILTRATION RATE 84 ML/MIN (>=60); GLUCOSE 110 mg/dL (74-118); POTASSIUM 4.4 mmol/L (3.5-5.1); SODIUM 140 mmol/L (136-145); TOTAL PROTEIN 7.1 g/dL (6.5-8.1)
[2023-10-09 20:04] LABS: TROPONIN I < 0.001 ng/mL (0-0.300)
[2023-10-09] MEDS ORDERED: IOPAMIDOL 370 MG/ML 100 ML INFUS..BTL INJ ONE (20:25)
[2023-10-09 22:02] LABS: BILIRUBIN,URINE NEGATIVE (NEGATIVE); CLARITY,URINE CLEAR (CLEAR); COLOR,URINE YELLOW (YELLOW); GLUCOSE, URINE NEGATIVE (NEGATIVE); KETONES,URINE NEGATIVE (NEGATIVE); LEUKOCYTE ESTERASE ,URINE NEGATIVE (NEGATIVE); NITRITE,URINE NEGATIVE (NEGATIVE); PH,URINE 5.5 (5 - 7); PROTEIN,URINE DIPSTICK NEGATIVE (NEGATIVE); URINE UROBILINOGEN 0.2 mg/dL (0.2 - 1)
[2023-10-09 22:11] VITALS: BP 104/59; PULSE 55; RESP 17; TEMP 97.9
[2023-10-09 22:11] LABS: WBC,URINE (MAN) 0-5 /HPF (0-5)
[2023-10-09 22:12] LABS: BACTERIA,URINE FEW /HPF; EPITHELIAL CELLS,URINE FEW /LPF; RBC,URINE 0-5 /HPF (0-5)
[2023-10-09 22:15] VITALS: O2SAT 100
[2023-10-10] MEDS ORDERED: IOPAMIDOL 370 MG/ML 100 ML INFUS..BTL INJ ONE (13:18)
[2023-10-10] MEDS ORDERED: Sodium Chloride 0.9% 50ML Bag ONE (13:18)
== END 2023-10-09 22:26 | disposition home or self-care (01) ==
LOC: ER 18:46
DX: K62.89 Other specified diseases of anus and rectum (principal); R19.7 Diarrhea, unspecified; N40.0 Benign prostatic hyperplasia without lower urinary tract symptoms; I10 Essential (primary) hypertension; E11.40 Type 2 diabetes mellitus with diabetic neuropathy, unspecified; Z11.52 Encounter for screening for COVID-19
CPT/HCPCS: 36415; 74177; 80053; 81001; 82550; 83690; 84484; 85025; 99284; J7030; Q9967; U0002

== ENCOUNTER 2024-01-29 19:25 | Emergency (ER) | payer BC ==
[~2024-01-29] VITALS: Ht 180.3 cm; Wt 94.8 kg
[~2024-01-29 19:25] MED LIST changes: -SODIUM CHLORIDE 0.9% 1000 ML BAG ONE
[2024-01-29 19:57] VITALS: TEMP 98.4
[2024-01-29 20:39] LABS: BASOPHILS # (AUTO) 0.1 (0.0-0.1); BASOPHILS % 0.8 % (0.0-1.0); EOSINOPHILS # (AUTO) 0.2 (0.0-0.4); EOSINOPHILS % 2.6 % (0.0-6.0); HEMATOCRIT 38.7 % (38.2-49.6); HEMOGLOBIN 12.5 g/dL (14.0-18.0); LYMPHOCYTES # (AUTO) 1.7 (1.0-3.2); LYMPHOCYTES % 25.3 % (18.0-39.1); MEAN CORPUSCULAR HEMOGLOBIN 30.3 pg (28-32); MEAN CORPUSCULAR HGB CONC 32.3 g/dL (31-35); MEAN CORPUSCULAR VOLUME 93.9 fL (81-99); MONOCYTES # (AUTO) 0.6 (0.2-0.8); MONOCYTES % 9.7 % (4.4-11.3); NEUTROPHILS # (AUTO) 4.1 (2.1-6.9); NEUTROPHILS % 61.1 % (38.7-80.0); PLATELET COUNT 175 x10e3/uL (140-360); RED BLOOD COUNT 4.12 x10e6/uL (4.3-5.7); RED CELL DISTRIBUTION WIDTH 12.6 % (11.7-14.4); WHITE BLOOD COUNT 6.63 x10e3/uL (4.8-10.8)
[2024-01-29 20:55] LABS: CLARITY,URINE SL CLOUDY (CLEAR); COLOR,URINE YELLOW (YELLOW); PH,URINE 5.5 (5 - 7)
[2024-01-29 20:56] LABS: BILIRUBIN,URINE SMALL (NEGATIVE); GLUCOSE, URINE NEGATIVE (NEGATIVE); KETONES,URINE TRACE (NEGATIVE); LEUKOCYTE ESTERASE ,URINE NEGATIVE (NEGATIVE); NITRITE,URINE NEGATIVE (NEGATIVE); PROTEIN,URINE DIPSTICK 1+ (NEGATIVE); URINE UROBILINOGEN 0.2 mg/dL (0.2 - 1)
[2024-01-29 20:57] LABS: ALANINE AMINOTRANSFERASE 11 IU/L (0-55); ALBUMIN 4.1 g/dL (3.5-5.0); ALBUMIN/GLOBULIN RATIO 1.9 (0.8-2.0); ALKALINE PHOSPHATASE 62 IU/L (40-150); BILIRUBIN,TOTAL 0.3 mg/dL (0.2-1.2); BLOOD UREA NITROGEN 13 mg/dL (7-26); BUN/CREATININE RATIO 14 (6-25); CARBON DIOXIDE 23 mmol/L (22-29); CHLORIDE 107 mmol/L (98-107); CREATINE KINASE 97 IU/L (30-200); CREATININE, SERUM 0.91 mg/dL (0.72-1.25); EST GLOMERULAR FILTRATION RATE 94 ML/MIN (>=60); GLUCOSE 114 mg/dL (74-118); SODIUM 140 mmol/L (136-145); TOTAL PROTEIN 6.3 g/dL (6.5-8.1)
[2024-01-29 21:03] LABS: BACTERIA,URINE FEW /HPF; MUCUS,URINE FEW (RARE); WBC,URINE (MAN) 0-5 /HPF (0-5)
[2024-01-29 21:04] LABS: TROPONIN I < 0.001 ng/mL (0-0.300)
[2024-01-29] MEDS: SODIUM CHLORIDE 0.9% 1000ML 1,000 ML IV STA (21:19)
[2024-01-29] MEDS ORDERED: IOPAMIDOL 370 MG/ML 100 ML INFUS..BTL INJ ONE (21:28)
[2024-01-29 22:18] VITALS: PULSE 53; RESP 16
[2024-01-29 23:17] VITALS: BP 127/71; PULSE 64; RESP 22; TEMP 97.8; O2SAT 100
== END 2024-01-29 23:18 | disposition home or self-care (01) ==
LOC: ER 19:30
DX: R10.31 Right lower quadrant pain (principal); N40.0 Benign prostatic hyperplasia without lower urinary tract symptoms; K42.9 Umbilical hernia without obstruction or gangrene; Z11.52 Encounter for screening for COVID-19
CPT/HCPCS: 36415; 74177; 80053; 81001; 82550; 83690; 84484; 85025; 93005; 99284; J7030; Q9967; U0002

== ENCOUNTER 2024-02-05 18:44 | Emergency (ER) | payer BC ==
[~2024-02-05] VITALS: Ht 180.3 cm; Wt 94.8 kg
[2024-02-05 19:41] VITALS: TEMP 98.7
[2024-02-05 19:53] LABS: BASOPHILS % 0.7 % (0.0-1.0); EOSINOPHILS # (AUTO) 0.2 (0.0-0.4); EOSINOPHILS % 3.1 % (0.0-6.0); HEMATOCRIT 37.6 % (38.2-49.6); HEMOGLOBIN 12.3 g/dL (14.0-18.0); LYMPHOCYTES # (AUTO) 1.5 (1.0-3.2); LYMPHOCYTES % 26.4 % (18.0-39.1); MEAN CORPUSCULAR HEMOGLOBIN 30.2 pg (28-32); MEAN CORPUSCULAR HGB CONC 32.7 g/dL (31-35); MEAN CORPUSCULAR VOLUME 92.4 fL (81-99); MONOCYTES # (AUTO) 0.6 (0.2-0.8); NEUTROPHILS # (AUTO) 3.4 (2.1-6.9); NEUTROPHILS % 59.3 % (38.7-80.0); PLATELET COUNT 160 x10e3/uL (140-360); RED BLOOD COUNT 4.07 x10e6/uL (4.3-5.7); RED CELL DISTRIBUTION WIDTH 12.5 % (11.7-14.4)
[2024-02-05 20:03] LABS: BACTERIA,URINE FEW /HPF; BILIRUBIN,URINE SMALL (NEGATIVE); CLARITY,URINE TURBID (CLEAR); COLOR,URINE RED (YELLOW); GLUCOSE, URINE NEGATIVE (NEGATIVE); KETONES,URINE NEGATIVE (NEGATIVE); LEUKOCYTE ESTERASE ,URINE NEGATIVE (NEGATIVE); NITRITE,URINE NEGATIVE (NEGATIVE); PH,URINE 5 (5 - 7); PROTEIN,URINE DIPSTICK 2+ (NEGATIVE); RBC,URINE 21-50 /HPF (0-5); URINE UROBILINOGEN 0.2 mg/dL (0.2 - 1)
[2024-02-05 20:12] LABS: ALBUMIN/GLOBULIN RATIO 1.4 (0.8-2.0); ANION GAP 13.6 mmol/L (8-16); BILIRUBIN,TOTAL 0.4 mg/dL (0.2-1.2); CALCIUM 9.6 mg/dL (8.4-10.2); CREATININE, SERUM 1.19 mg/dL (0.72-1.25); POTASSIUM 4.6 mmol/L (3.5-5.1); TOTAL PROTEIN 6.8 g/dL (6.5-8.1)
[2024-02-05] MEDS: KETOROLAC TROMETHAMINE 30 MG/ML VIAL IV STA (21:15)
[2024-02-05 22:00] VITALS: PULSE 43; RESP 17
[2024-02-05 22:48] VITALS: BP 133/75; PULSE 50; RESP 18; TEMP 98.5; O2SAT 100
== END 2024-02-05 23:04 | disposition home or self-care (01) ==
LOC: ER 18:53
DX: R31.9 Hematuria, unspecified (principal); R10.30 Lower abdominal pain, unspecified; N20.0 Calculus of kidney; I10 Essential (primary) hypertension; E11.9 Type 2 diabetes mellitus without complications
CPT/HCPCS: 36415; 74176; 80053; 81001; 85025; 99284; J1885